=== PATIENT | female | born 1980 | race American Indian/Alaskan Native ===

== ENCOUNTER 2021-01-04 06:14 | Emergency (ER) | payer MEDICAID ==
[2021-01-04 07:17] LABS: Basophils # (Auto) 0.1 K/mm3 (0.0-0.1); Basophils % (Auto) 0.7 % (0.0-1.8); Eosinophils # (Auto) 0.1 K/mm3 (0.0-0.4); Hematocrit 43.8 % (30.3-42.9); Hemoglobin 14.6 gm/dl (10.1-14.3); Lymphocytes # (Auto) 1.5 K/mm3 (1.2-5.4); Lymphocytes % (Auto) 17.3 % (13.4-35.0); Mean Corpuscular HGB Conc 33 % (30-34); Mean Corpuscular Volume 92 fl (79-97); Monocytes # (Auto) 0.7 K/mm3 (0.0-0.8); Monocytes % (Auto) 8.2 % (0.0-7.3); Platelet Count 413 K/mm3 (140-440); Red Blood Count 4.76 M/mm3 (3.65-5.03); Red Cell Distribution Width 14.4 % (13.2-15.2)
[2021-01-04 07:47] LABS: BUN/Creatinine Ratio TNR; Blood Urea Nitrogen TNR mg/dL (7-17); Calcium TNR mg/dL (8.4-10.2)
[2021-01-04 07:48] LABS: Alanine Aminotransferase TNR units/L (7-56); Albumin TNR g/dL (3.9-5); Hemolysis Index TNR
[2021-01-04] MEDS ORDERED: dexAMETHasone 4 MG/ML VIAL IV ONE (08:56)
[2021-01-04] MEDS ORDERED: SODIUM CHLORIDE 0.9% 1000 ML 1,000 ML IV ONE (08:56)
[2021-01-04] MEDS ORDERED: IPRATROPIUM/ALBUTEROL SULFATE 3 ML AMPUL.NEB IH ONE ×2 (08:56→13:08)
[2021-01-04 09:14] LABS: Alanine Aminotransferase 7 units/L (7-56); Albumin 3.9 g/dL (3.9-5)
[2021-01-04 09:20] LABS: Bilirubin,Direct < 0.2 mg/dL (0-0.2)
[2021-01-04 09:30] LABS: BUN/Creatinine Ratio 9; Blood Urea Nitrogen 6 mg/dL (7-17); Hemolysis Index 5
--- NOTE | 2021-01-04 11:20 | Emergency Department Report ---
ED Chest Pain HPI - General Chief Complaint: Chest Pain Stated Complaint: CHEST PAIN Time Seen by Provider: 01/04/21 08:26 Source: patient Mode of arrival: Ambulatory Limitations: No Limitations - History of Present Illness Initial Comments: This is a 40-year-old female presents to the emergency department with a complaint of some chest discomfort to the lower chest, rib cage, that "feels like someone is squeezing me around my ribs." It is associated with some shortness of breath and the symptoms began this morning. The patient also says that she has had a 1 to 2-day history of a mixed dry and productive cough. She denies any nausea, vomiting, back pain, diaphoresis, lower extremity swelling. She is a tobacco smoker but denies any illicit drug use. No recent travel or sick contacts at home. She has a past medical history of asthma. She has a psychiatric history of bipolar disorder and schizophrenia. She has not taken anything for symptoms prior to presentation today. She does not have a primary care physician for follow-up. Patient is not vaccinated for COVID-19. - Related Data Previous Rx's Medication Instructions Recorded Last Taken Type Clindamycin [Clindamycin CAP] 300 mg PO Q8H 10 Days #30 cap 06/20/18 Unknown Rx traMADoL [Ultram] 50 mg PO Q6HR PRN #12 tablet 06/20/18 Unknown Rx Albuterol Mdi (or & Nicu Only) 2 puff IH QID PRN #8.5 gram 01/04/21 Unknown Rx [ProAir HFA Inhaler] Allergies Allergy/AdvReac Type Severity Reaction Status Date / Time aspirin Allergy Anaphylaxis Verified 01/04/21 12:26 Heart Score - HEART Score History: Slightly suspicious EKG: Normal Age: < 45 Risk factors: 1-2 risk factors Troponin: < normal limit HEART Score: 1 - EKG Read Time Time EKG Completed: 06:26 EKG Read Time: 06:30 ED Review of Systems ROS: Stated complaint: CHEST PAIN Other details as noted in HPI Comment: All other systems reviewed and negative Constitutional: denies: chills, fever Eyes: denies: eye pain, vision change ENT: denies: ear pain, throat pain Respiratory: cough, shortness of breath (Intermittent) Cardiovascular: chest pain. denies: palpitations Gastrointestinal: denies: abdominal pain, vomiting Genitourinary: denies: dysuria, discharge Musculoskeletal: denies: back pain, arthralgia Skin: denies: rash, lesions Neurological: denies: headache, weakness ED Past Medical Hx - Past Medical History Hx Psychiatric Treatment: Yes (bipolar schizophrenia) Hx Asthma: Yes - Surgical History Additional Surgical History: x 2, cranial surgery (plate) - Social History Smoking Status: Current Every Day Smoker Substance Use Type: Alcohol, Marijuana - Medications Home Medications: Home Medications Medication Instructions Recorded Confirmed Last Taken Type Clindamycin [Clindamycin CAP] 300 mg PO Q8H 10 Days #30 cap 06/20/18 Unknown Rx traMADoL [Ultram] 50 mg PO Q6HR PRN #12 tablet 06/20/18 Unknown Rx Albuterol Mdi (or & Nicu Only) 2 puff IH QID PRN #8.5 gram 01/04/21 Unknown Rx [ProAir HFA Inhaler] ED Physical Exam - General Limitations: No Limitations - Other Other exam information: GENERAL: The patient is well-developed well-nourished. HENT: Normocephalic. Atraumatic. Patient has moist mucous membranes. EYES: Extraocular motions are intact. NECK: Supple. Trachea is midline. CHEST/LUNGS: Clear to auscultation. There is no respiratory distress noted. HEART/CARDIOVASCULAR: Regular. There is no tachycardia. There is no murmur. ABDOMEN: Abdomen is soft, nontender. Patient has normal bowel sounds. SKIN: Skin is warm and dry. NEURO: The patient is awake, alert, and oriented. The patient is cooperative. The patient has no focal neurologic deficits. Normal speech. MUSCULOSKELETAL: There is no tenderness or deformity. There is no limitation range of motion. ED Course Vital Signs 01/04/21 01/04/21 01/04/21 06:19 08:32 08:45 Temperature 98.8 F Pulse Rate 111 H 84 79 Pulse Rate [ Anterior Bilateral Throughout] Respiratory 18 18 26 H Rate Respiratory Rate [Anterior Bilateral Throughout] Blood Pressure 183/99 149/88 O2 Sat by Pulse 99 100 99 Oximetry 01/04/21 01/04/21 01/04/21 09:01 09:15 09:31 Temperature Pulse Rate 79 71 89 Pulse Rate [ Anterior Bilateral Throughout] Respiratory 23 25 H 22 Rate Respiratory Rate [Anterior Bilateral Throughout] Blood Pressure 157/88 158/78 150/79 O2 Sat by Pulse 99 98 98 Oximetry 01/04/21 01/04/21 01/04/21 09:45 10:01 10:15 Temperature Pulse Rate 73 77 70 Pulse Rate [ Anterior Bilateral Throughout] Respiratory 22 28 H 31 H Rate Respiratory Rate [Anterior Bilateral Throughout] Blood Pressure 157/89 157/83 156/80 O2 Sat by Pulse 97 98 100 Oximetry 01/04/21 01/04/21 01/04/21 10:31 10:45 11:01 Temperature Pulse Rate 73 76 77 Pulse Rate [ Anterior Bilateral Throughout] Respiratory 34 H 27 H 28 H Rate Respiratory Rate [Anterior Bilateral Throughout] Blood Pressure 154/79 147/84 145/76 O2 Sat by Pulse 99 98 98 Oximetry 01/04/21 01/04/21 01/04/21 11:15 11:31 12:13 Temperature Pulse Rate 75 72 78 Pulse Rate [ Anterior Bilateral Throughout] Respiratory 26 H 29 H 22 Rate Respiratory Rate [Anterior Bilateral Throughout] Blood Pressure 150/85 154/83 150/79 O2 Sat by Pulse 99 99 99 Oximetry 01/04/21 13:37 Temperature Pulse Rate Pulse Rate [ 71 Anterior Bilateral Throughout] Respiratory Rate Respiratory 20 Rate [Anterior Bilateral Throughout] Blood Pressure O2 Sat by Pulse Oximetry PRASHANT score - Prashant Score Age > 65: (0) No Aspirin use within the Past 7 Days: (0) No 3 or more CAD Risk Factors: (0) No 2 or more Angina events in past 24 hrs: (1) Yes Known CAD with more than 50% Stenosis: (0) No Elevated Cardiac Markers: (0) No ST Deviation Greater than 0.5mm: (0) No PRASHANT Score: 1 ED Medical Decision Making - Lab Data Result diagrams: 01/04/21 07:02 01/04/21 08:46 - EKG Data -: EKG Interpreted by Mo EKG shows normal: sinus rhythm, axis, intervals, QRS complexes, ST-T waves Rate: normal - EKG Data When compared to previous EKG there are: previous EKG unavailable Interpretation: normal EKG - Radiology Data Radiology results: report reviewed CHEST 2 VIEWS INDICATION / CLINICAL INFORMATION: chest pain. COMPARISON: None available. FINDINGS: SUPPORT DEVICES: None. HEART / MEDIASTINUM: No significant abnormality. LUNGS / PLEURA: Diffuse bilateral pulmonary opacities with interstitial nodularity diffusely. No pneumothorax. ADDITIONAL FINDINGS: No significant additional findings. IMPRESSION: 1. Diffuse pulmonary opacities and interstitial nodularity in bilateral lungs. Findings could represent atypical infection including viral, mycobacterial, nonspecific. Follow-up after treatment. CTA CHEST WITH CONTRAST INDICATION / CLINICAL INFORMATION: CP, elevated dimer OMNI 350 100 ML. TECHNIQUE: Axial CT images were obtained through the chest after injection of IV contrast. 3 plane MIP and/or 3D reconstructions were produced. All CT scans at this location are performed using CT dose reduction for ALARA by means of automated exposure control. COMPARISON: None available. FINDINGS: PULMONARY ARTERIES: No pulmonary emboli. THORACIC AORTA: No significant abnormality. HEART: No significant abnormality. CORONARY ARTERY CALCIFICATION: None. MEDIASTINUM / THONG: No significant abnormality. PLEURA: No pleural effusion. No pneumothorax. LUNGS: Innumerable subcentimeter nodules are scattered throughout both lungs. Several contain central cavitation. No discrete infiltrate. ADDITIONAL FINDINGS: None. UPPER ABDOMEN: No acute findings. SKELETAL STRUCTURES: No significant osseous abnormality. IMPRESSION: 1. No CT evidence for pulmonary embolism. 2. Irregular, cavitary nodules are seen diffusely throughout both lungs. Atypical infection to include fungal disease is favored over metastatic disease. - Medical Decision Making This patient presents to the emergency department with the complaint of some chest discomfort in which it feels like somebody is squeezing her around her lower rib cage. It is associated with some intermittent shortness of breath and cough. EKG is normal without morphology consistent with ST elevation ND. No arrhythmia. The chest x-ray shows some bilateral patchy infiltrates concerning for atypical pneumonia or inflammation. The patient is afebrile and there has been no hypoxia, but the patient was made a PUI as she is not vaccinated against COVID-1 9. Labs were mostly unremarkable including CBC, metabolic panel and negative troponins x2. However the patient did have a very elevated D-dimer level of about 3000. For this reason she had a CT angiography of the chest that shows cavitary lung disease. Patient was given a breathing treatment and a dose of Decadron. Upon reevaluation she says she is feeling greatly improved. She is very low on the heart and PRASHANT score. This appears less suspicious for ACS and CAD. The patient will be discharged home with multiple follow-ups. Her contact information has been sent over to the [facility], and someone from their office should be contacting her shortly for close outpatient follow-up as part of our hospitals low risk chest pain protocol. She has also been given outpatient referral for pulmonology to follow-up regarding the x-ray and CT findings of this cavitary lung disease. The patient is also been given outpatient referrals for primary care. She will return to the emergency department with any worsening of her symptoms or with any acute distress. Critical Care Time: No Critical care attestation.: If time is entered above; I have spent that time in minutes in the direct care of this critically ill patient, excluding procedure time. ED Disposition Clinical Impression: Atypical chest pain, Cavitary lung disease Hypertension Qualifiers: Hypertension type: primary hypertension Qualified Code(s): I10 - Essential (primary) hypertension Disposition: TO HOME OR SELFCARE Is pt being admited?: No Condition: Stable Instructions: Nonspecific Chest Pain, Adult, Hypertension, Adult, Hypertension (ED) Additional Instructions: Please follow-up with a primary care physician in the next few days. I have given you a referral for a local primary care physician, Dr. Pedroza, and a primary care clinic, [facility]. Due to the x-ray and CT findings of cavitary lesions of your lungs, I have given you a referral for a local electric scoop operator (lung doctor), Dr. Baca. I have sent your contact information over to the [facility], and someone from their office should be contacting you shortly for close outpatient follow-up regarding your chest discomfort. Just in case, I have given you a referral for one of their change release manager, Dr. Yoon. Please try and quit smoking. Given this current pandemic, and the fact that you are not vaccinated against COVID-19, I do recommend that you seek outpatient COVID-19 testing. I am unable to test you for COVID-19 [id number] in the emergency department. Return to the emergency department with any worsening of your symptoms, new or concerning symptoms not addressed during this current emergency department visit, or with any acute distress. Prescriptions: Albuterol Mdi (or & Nicu Only) [ProAir HFA Inhaler] 2 puff IH QID PRN #8.5 gram PRN Reason: Shortness Of Breath Referrals: LILIAN KENDRICK MD [Staff Physician] - 2-3 Days KEATON PEDROZA MD [Staff Physician] - 2-3 Days [facility] [Provider Group] - 2-3 Days CATALINA YOON MD [Staff Physician] - 2-3 Days Forms: Work/School Release Form(ED) Time of Disposition: 14:43
[2021-01-04] MEDS ORDERED: dexAMETHasone 4 MG/ML VIAL ONE (12:20)
[2021-01-04 12:27] VITALS: BP 150/79
--- NOTE | 2021-01-09 10:50 | Electrocardiograph Report ---
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
== END 2021-01-04 15:36 | disposition home or self-care (01) ==
LOC: ED 06:14
DX: J98.4 Other disorders of lung (principal); I10 Essential (primary) hypertension; R07.89 Other chest pain; F20.9 Schizophrenia, unspecified; F17.200 Nicotine dependence, unspecified, uncomplicated; F12.90 Cannabis use, unspecified, uncomplicated; Z72.89 Other problems related to lifestyle; Z88.6 Allergy status to analgesic agent; Z79.899 Other long term (current) drug therapy
CPT/HCPCS: 36415; 71046; 71275; 80048; 80053; 80076; 84484; 84703; 85025; 85379; 93005; 94640; 96361; 96374; 99284; J1100; J7030; Q9967; 94644